=== PATIENT | female | born 1985 | race Caucasian/White ===

== ENCOUNTER 2016-10-24 19:46 | Emergency (ER) | payer OTHER ==
[~2016-10-24] VITALS: Ht 157.5 cm; Wt 90.0 kg
[~2016-10-24 19:46] MED LIST: ALBU18HF INH; OXYC1TAB24 PO
[2016-10-24 19:53] VITALS: BP 156/114; PULSE 91; RESP 16; O2SAT 98
[2016-10-24 20:19] LABS: BASOPHILS % (AUTO) 0.4 % (0-3); EOSINOPHILS % (AUTO) 1.5 % (0-5); Mean Corpuscular Hemoglobin 32.3 pg (27.0-35.0); Mean Corpuscular Volume 92.7 fL (81-100); NEUTROPHILS % (AUTO) 60.3 % (40-74); Platelet Count 339 bil/L (150-400)
[2016-10-24 20:59] LABS: APPEARANCE,URINE HAZY (CLEAR,HAZY); COLOR,URINE DARK YELLOW (YELLOW); PH,URINE 6.5 (5.0-8.0)
[2016-10-24 21:00] LABS: OCCULT BLOOD,URINE NEGATIVE (NEGATIVE)
--- NOTE | 2016-10-24 21:01 | ED.REPORT ---
HPI-Abd Pain F Under 40 Date of Service Oct 24, 2016 ED Provider: Rocael Cosme DO Pt is a 31 year old female with a history of HTN, nephrolithiasis, fatty liver, and tubal ligation who presents to the ED complaining of intermittent severe lower back pain onset yesterday. She c/o associated nausea, vomiting 2x, fatigue , decreased appetite, chills, body aches, urinary frequency, and vaginal discharge. She denies rash, dysuria and any other symptoms. The pt reports that her last menstruation was on 10/09/16. The pt states that her back pain is worse on the right. Nursing Notes Stated Complaint: BACK PAIN,NAUSEA,VOMITING Chief Complaint: Female Abdominal Pain Nursing Notes Reviewed: Yes Allergies: Coded Allergies: citalopram (Verified Adverse Reaction, Severe, CONFUSION, 10/24/16) ondansetron (Verified Adverse Reaction, Severe, VOMITING, 10/24/16) Scheduled PRN Albuterol Sulfate (Ventolin HFA Inhaler) 200 Puff/18 Gm Inhaler 2 PUFFS INH Q4H PRN PRN For Wheezing oxyCODONE-Acetaminophen 5-325 mg (oxyCODONE-Acetaminophen 5-325 mg) 1 Each Tablet 1 TAB PO Q6H PRN PRN For Pain General Time Seen by MD: 21:01 Chief Complaint Other (back pain) Hx Obtained From: Patient Arrived By: Walk-in Onset Occurred: Yesterday Symptom Duration: Intermittent Location: : Back Quality: Painful Radiation: : Does not radiate Severity: Current: Moderate Severity: Maximum: Moderate Recent Healthcare: No recent doctor visit, No recent hospitalization Similar Sx Previous: Yes Past Medical History Past Medical History Nephrolithiasis Anxiety Fatty liver Reports: GERD, Hypertension Reports: Depression Past Surgical History ankle surgery, melomna removed and adenoids Reports: Reports: Tubal ligation Smoking History Current Every Day Smoker Social History Alcohol Use: "Social" Drug Use: Denies drug use Other Social History: Good social support, , Lives with children Occupation lives with and 2 kids Ambulatory Status Independent Review of Systems + decreased appetite + body aches Constitutional: Reports: Chills GI: Reports: Nausea, Vomiting Female: Reports: Urinary frequency, Vaginal discharge, Denies: Dysuria Musculoskeletal: Reports: Back pain Complete sys rev & neg: except as marked. Skin: Denies Rash Physical Exam Initial Vital Signs Vital Signs (First) Date Time Temp Pulse Resp B/P Pulse Ox O2 Delivery O2 Flow Rate FiO2 10/24/16 19:53 36.9 91 16 156/114 98 Room Air Initial VS: Reviewed Head / Eyes: Atraumatic, Normocephalic Neck: Supple, Full range of motion Extremities: Vascular intact, Neuro intact Skin: Warm, Dry, No cyanosis Neurologic: Alert, Oriented, Nonfocal Psychiatric: Mood/affect normal, Behavior normal General/Constitutional: Awake, Alert Respiratory / Chest: Atraumatic, Breath sounds NL, Breath sounds = bilat Cardiovascular: Heart rate NL, Regular rhythm, Heart sounds NL Abdomen: Atraumatic, Soft, Non-tender Back: Atraumatic, Full range of motion Left CVA tenderness. Interpretation & Diagnostics CT ABDOMEN AND PELVIS WITHOUT CONTRAST Conclusion: Increased renal pyramids attenuation bilaterally, can be normal finding or could represents early findings of medullary nephrocalcinosis. Transmitted to the ED at 01:07 by Yenifer Xiong M.D. Lab Results Interpretation Result Diagram: 10/24/16200610/24/16 2007 Test 10/24/16 20:07 10/24/16 20:40 10/25/16 00:59 10/25/16 01:00 White Blood Count 9.9th/mm3 (3.8-10.1) Red Blood Count 4.40mil/mm3 (3.90-5.20) Hemoglobin 14.2g/dL (12.0-15.6) Hematocrit 40.8% (35.0-46.0) Mean Corpuscular Volume 92.7fL (81-100) Mean Corpuscular Hemoglobin 32.3pg (27.0-35.0) Mean Corpuscular Hemoglobin Concent 34.8% (32.0-37.0) Red Cell Distribution Width 12.4% (12.3-15.4) Platelet Count 339bil/L (150-400) Neutrophils (%) (Auto) 60.3% (40-74) Lymphocytes (%) (Auto) 30.4% (14-46) Monocytes (%) (Auto) 7.0% (4-12) Eosinophils (%) (Auto) 1.5% (0-5) Basophils (%) (Auto) 0.4% (0-3) Sodium Level 138mEq/L (134-144) Potassium Level 4.1mEq/L (3.5-5.2) Chloride Level 100mEq/L (97-108) Carbon Dioxide Level 22mmol/L (18-29) Blood Urea Nitrogen 18mg/dL (6-20) Creatinine 0.75mg/dL (0.57-1.00) Estimat Glomerular Filtration Rate 129mL/min (>59) Glucose Level 107mg/dL (60-99) Calcium Level 9.6mg/dL (8.5-10.1) Magnesium Level 2.0mg/dL (1.6-2.6) Total Bilirubin 0.6mg/dL (0.0-1.2) Aspartate Amino Transf (AST/SGOT) 34U/L (0-50) Alanine Aminotransferase (ALT/SGPT) 65U/L (0-32) Alkaline Phosphatase 95U/L (25-150) Total Protein 8.1g/dL (6.4-8.4) Albumin 4.6g/dL (3.4-5.0) Lipase 35U/L (13-60) Hold Shin Top Tube Received (Received) Urine Color Dark yellow (YELLOW) Urine Appearance Hazy (CLEAR,HAZY) Urine pH 6.5 (5.0-8.0) Urine Specific [place] 1.020 (1.003-1.035) Urine Protein Tracemg/dL (NEG,TRACE) Urine Glucose (UA) Negativemg/dL (NEGATIVE) Urine Ketones Tracemg/dL (NEGATIVE) Urine Occult Blood Negative (NEGATIVE) Urine Nitrite Negative (NEGATIVE) Urine Bilirubin Negative (NEGATIVE) Urine Urobilinogen 1.0mg/dL (NORMAL) Urine Leukocyte Esterase Negative (NEGATIVE) Urine RBC 0-2/hpf (0-2) Urine WBC 0-5/hpf (0-5) Urine Epithelial Cells Few/hpf (NONE-MOD) Urine Crystals None seen (NONE SEEN) Urine Bacteria Few/hpf (NONE-FEW) Urine Hyaline Casts None/lpf (NONE) Urine Granular Casts None seen (NONE SEEN) Urine Waxy Casts None seen (NONE SEEN) Urine Red Blood Cell Casts None seen (NONE SEEN) Urine White Blood Cell Casts None seen (NONE SEEN) Urine Mucus Present (None Seen) Urine Trichomonas None seen (NONE SEEN) Urine Yeast None (NONE SEEN) Urinalysis Comment None Urine Culture Reflexed Not indicated Urine HCG, Qualitative Negative (Negative) Hold Urine Received (Received) Lab Results Interpretation: Negative test Re-Eval/Medical Decision Med Decision/Clinical Course Rather severe left flank pain. CT scan indicated. CT scan shows what could be early nephrocalcinosis with increased attenuation in the collecting systems bilaterally. Infection could have a similar picture I suppose. We treated with IV ceftriaxone. IV opiates and she felt better. I will place her on a seven-day course of Bactrim. Short course of Percocet for pain. Follow-up next week for primary care physician. She may need urology or nephrology referral. Her blood pressure is moderately elevated I strongly recommend that this was followed up with 2. Source of Hx: Old records Re-Evaluation/Progress #1: Time of Eval: 22:34 Re-Evaluation/Progress Note: Pt rechecked. She denies rash. Informed pt of results and updated pt. She denies history of passing a kidney stone. All questions addressed. Re-Evaluation/Progress #2: Time of Eval: 00:25 Re-Evaluation/Progress Note: Pt rechecked. Her pain was not improved with the Toradol. Updated pt on progress. All questions addressed. Re-Evaluation/Progress #3: Time of Eval: 01:18 Re-Evaluation/Progress Note: Pt rechecked. Informed pt of CT results. All questions addressed. Re-Evaluation/Progress #4: Time of Eval: 01:53 Re-Evaluation/Progress Note: Pt rechecked. Pt is feeling better and would like to go home. Informed pt of plan for discharge. Pt understands and agrees with plan for discharge. F/U instructions and RTER warnings given. All questions addressed. Counseled Regarding: Diagnosis, Lab results, Need for follow-up, When/why to return to ED Discharge & Departure Primary Impression: Left flank pain Additional Impression: Nephrocalcinosis Disposition: Home Discharge Condition All VS Reviewed: Yes Condition: Stable Patient Instructions: Kidney Stones (ED), Urinary Tract Infection in Women (DC) Additional Instructions: The CAT scan shows increased attenuation in the collecting systems of both kidneys. This may be early nephrocalcinosis. You may have passed a kidney stone tonight as well or possibly an infection. Take 1-2 Percocet every 6 hours as needed for pain. Do not drive or drink alcohol or consume acetaminophen while taking a Percocet. Phenergan 1 every 8 hours for nausea. This too can be sedating; don't drive while you are taking it. Take Bactrim twice daily for 7 days. Drink plenty of liquids. I would like you to set up a follow-up appointment with your primary care provider next week. You may need referral to urology and nephrology as well. Do not hesitate to return for any problems or any new or worrisome symptoms. Referrals: OTHER,PHYSICIAN (PCP) Melissa Wood MD, Eugene K MD [facility] [employer] Attestation Portions of this note were transcribed by Hilda Arshad. I, Dr. Cosme personally performed the history, physical exam and medical decision-making; I reviewed and confirmed the accuracy of the information in the transcribed note. Signed by : Nelson Bo, 10/24/16. copies to: Melissa Wood MD; Jai Pacheco MD; OTHER,PHYSICIAN; [facility] Rocael Cosme DO Oct 24, 2016 21:01 Hilda Ryan Oct 24, 2016 21:54
[2016-10-24] MEDS ORDERED: HYDROcodone-APAP 5-325 mg Tablet PO ONE (22:30)
[2016-10-24] MEDS ORDERED: Promethazine 25 mg/mL Inj IM ONE (23:05)
[2016-10-25] MEDS ORDERED: 0.9% Sodium Chloride 1,000 ML IV ONE (00:30)
[2016-10-25] MEDS: HYDROmorphone 0.5 mg/0.5 mL iSecure Syringe IVPUSH PRN ×4 (00:35→02:10)
[2016-10-25 00:40] VITALS: BP 152/99; PULSE 93; RESP 16; O2SAT 97
[2016-10-25] MEDS ORDERED: Promethazine 25 mg/mL Inj IM ONE (01:25)
[2016-10-25] MEDS ORDERED: cefTRIAXone Inj 2,000 MG in Dextrose 5% Minibag Plus 50 ML IV ONE (01:25)
[2016-10-25 02:30] VITALS: BP 148/89; PULSE 90; RESP 16; O2SAT 98
--- NOTE | 2016-10-25 08:04 | DRSVH ---
PROCEDURE: CT KUB ([id number]) INDICATIONS: left flank pain, vomiting TECHNIQUE: Noncontrast 5 mm thick sections acquired from the diaphragms to the symphysis. 5 mm thick coronal an d sagittal reformats were then performed. For radiation dose reduction, the following was used: aut omated exposure control, adjustment of mA and/or kV according to patient size. COMPARISON: [facility], CT, KUB - CT (ABD/PEL W/O CONT), 02/26/2014, 22:25. FINDINGS: Image quality: Excellent. Lung bases: Lung bases are clear. Heart size is normal. Urinary system: Both kidneys are normal in size. No kidney stones. No hydronephrosis or perinephri c fat stranding. Increased density in the renal pyramids bilaterally. Both ureters appear non-dilated throughout their expected courses. Bladder wall thickness is normal; no calcified bladder stones. Other solid organs: Liver and spleen are normal in size. Mild hepatic steatosis. Gallbladder demonst rates layering increased density which may represent milk of calcium. No CT evidence of acute cholecy stitis. Pancreas is normal in contours. No adrenal nodules. Uterus is present. Peritoneum and bowel: Unenhanced bowel loops demonstrate normal wall thickness and caliber. No free fluid or air. Nodes and vessels: No retroperitoneal or mesenteric adenopathy by size criteria. Aorta and inferior vena cava are normal in caliber. Abdominal wall: No ventral hernias. Pelvis: No free pelvic fluid. No inguinal hernias or adenopathy. Bones: No suspicious bony lesions. No vertebral body compression fractures. IMPRESSION: 1. No obstructing renal or ureteral calculi. No hydronephrosis or ureterectasis. Increased renal pyra mid density bilaterally may represent early medullary nephrocalcinosis. 2. Layering densities in the gallbladder may represent milk of calcium. There is no CT evidence of ac oscar cholecystitis. 3. There are no discrepancies with the preliminary report. Dictated by: Moe Caldwell M.D. on 10/25/2016 at 7:57 Approved by: Moe Caldwell M.D. on 10/25/2016 at 8:02
== END 2016-10-25 02:32 | disposition home or self-care (01) ==
LOC: SED 19:46
DX: E83.59 Other disorders of calcium metabolism (principal); R11.2 Nausea with vomiting, unspecified; R53.83 Other fatigue; I10 Essential (primary) hypertension; K21.9 Gastro-esophageal reflux disease without esophagitis; F41.8 Other specified anxiety disorders; F17.200 Nicotine dependence, unspecified, uncomplicated; Z88.8 Allergy status to other drugs, medicaments and biological substances
CPT/HCPCS: 36415; 74176; 80053; 81000; 81025; 83690; 83735; 85025; 96365; 96372; 96375; 96376; 99285; J0696; J1170; J1200; J1885; J2550; J7030